=== PATIENT | male | born 1990 | race Caucasian/White ===

== ENCOUNTER → 2019-01-06 | Outpatient (CLI) | payer OTHER ==
[~2019-01-06] MED LIST: BUP100 PO; CIT20 PO; CITA-156 PO; CITA10SO7 PO; DIA5 PO; IBUP800T37 PO; LEVO150T72 PO; LISI-362 PO; LORA-1254 PO; LORA-630 PO; MID PO; PARO-242 PO; PARO10TA PO; PENI250S14 PO; PER PO; PHENA100 PO; RIZA10 PO; TAM4 PO; TRAZ-133 PO; mvi; vit d
== END ==
LOC: US 10:55
PROVIDERS: ATTEND Family Medicine
DX: I34.0 Nonrheumatic mitral (valve) insufficiency (principal); I07.1 Rheumatic tricuspid insufficiency
CPT/HCPCS: 93306

== ENCOUNTER 2019-04-28 18:06 | Emergency (ER) | payer OTHER ==
--- NOTE | 2019-04-28 18:10 | ER Report ---
History and Physical Time Seen By MD: 18:05 HPI/ROS CHIEF COMPLAINT: Numbness, left scalp HISTORY OF PRESENT ILLNESS: 28-year-old male with a long history of anxiety and panic attacks. Patient also has a typical migraines but hasn't had one for years. Patient notes sudden onset approximately 30 minutes prior to arrival of sudden numbness on his left scalp. He describes a decrease of approximate 70% of the sensation on that side. He's feeling somewhat ill and out of sorts. He notes that he's had some trouble walking, but he states he did not fall her. He has not had a staggering gait. He states she's had a severe migraine with strokelike symptoms before. Patient notes no numbness, tingling or weakness in any of his arms or legs. He notes no incoordination. He notes no visual changes or speech changes. Patient denies recent illness. He does describe some sensation of vertigo. Patient denies neck pain or history of arthritis in his neck. REVIEW OF SYSTEMS: Respiratory: No cough, no dyspnea. Cardiovascular: No chest pain, no palpitations. Gastrointestinal: No vomiting, no abdominal pain. Musculoskeletal: No back pain. Allergies: Coded Allergies: cefaclor (Verified Allergy, Mild, RASH, 04/28/19) milk (Unverified Allergy, Mild, Pt gets "sick to the stomach", 04/28/19) cannot drink milk but can eat products containing milk oxycodone HCl (Verified Allergy, Unknown, 04/28/19) Uncoded Allergies: Eggs (Allergy, Mild, Pt. gets "sick to the stomach", 11/11/09) SEASONAL ALLERGIES (Allergy, Mild, 06/01/08) Home Meds Reported Medications Cholecalciferol (Vitamin D3) (VITAMIN D3) 1,000 Unit Tablet, 5000 UNIT PO 3XW, TAB 04/28/19 Omeprazole (OMEPRAZOLE) 20 Mg Capsule.dr, 1 CAP PO QDAY, CAP 04/28/19 Metformin Hcl (METFORMIN HCL) 500 Mg Tablet, 1 TAB PO 2XW, TAB 04/28/19 Hydrochlorothiazide (HYDROCHLOROTHIAZIDE) 25 Mg Tablet, 1 TAB PO QDAY, TAB 04/28/19 Lisinopril (LISINOPRIL) 10 Mg Tablet, 30 MG PO QDAY, TAB 04/28/19 Escitalopram Oxalate (LEXAPRO) 20 Mg Tablet, 20 MG PO QDAY, TAB 04/28/19 Discontinued Reported Medications Paroxetine Hcl (PAXIL) 10 Mg Tablet, 10 MG PO QDAY 08/15/13 Lisinopril (LISINOPRIL) 10 Mg Tablet, 10 MG PO QDAY 08/15/13 Discontinued Scripts Ibuprofen (IBUPROFEN) 800 Mg Tablet, 1 TAB PO Q8H, #30 Prov:REMBERTO COPELAND DO 05/04/15 Diazepam (VALIUM) 5 Mg Tablet, 5 MG PO Q6-8H, #15 TAB TAKE ONE TABLET BY MOUTH TWO TO THREE TIMES A DAY Prov:REMBERTO COPELAND DO 05/04/15 Lorazepam (LORAZEPAM) 0.5 Mg Tablet, 0.5 MG PO Q4-6H, #10 MG TAKE ONE TABLET BY MOUTH EVERY FOUR TO SIX HOURS NEEDED Prov:ADELAIDEHILARIA RICHA DO 08/15/13 Past Medical/Surgical History He does have a history of hypertension and asthma, anxiety, atypical migraine Reviewed Nurses Notes: Yes Old Medical Records Reviewed: Yes Hx Smoking: No Exposure to Second Hand Smoke?: No Hx Substance Use Disorder: No Hx Alcohol Use: No Constitutional Vital Sign - Last 24 Hours 04/28/19 04/28/19 04/28/19 04/28/19 18:14 18:30 19:00 19:05 Temp 97.5 Pulse 69 81 78 77 Resp 20 B/P (MAP) 144/87 Pulse Ox 94 92 94 92 O2 Delivery Room Air 04/28/19 19:20 Pulse 75 Pulse Ox 94 Physical Exam General Appearance: The patient is alert, has no immediate need for airway protection and no current signs of toxicity. Vital signs stable, afebrile, pulse ox normal, alert and oriented 3 HEENT: Pupils equal and round no injection. TMs normal, oropharynx without redness or exudate, mucous membranes are moist Respiratory: Chest is non tender, lungs are clear to auscultation. Cardiac: regular rate and rhythm Gastrointestinal: Abdomen is soft and non tender, no masses, bowel sounds normal. Musculoskeletal: Neck: Neck is supple and non tender. Extremities have full range of motion and are non tender. Skin: No rash or lesions. Neuro: Alert and oriented 3, cranial nerves II through XII intact motor 5/5 all groups, sensory intact to light touch 4, except there is decreased sensation to the left scalp and the entire left hemisphere History and physical exam differential diagnosis was considered for weakness including but not limited to electrolyte abnormality, depression, anxiety, CVA, spinal cord abnormality, and infectious causes. Medical Decision Making EKG/Imaging Imaging Results: CT scan of the head without contrast was obtained. The results of the study are The study was read by the radiologist. I viewed the images myself on the PACS system. ED Course/Re-evaluation ED Course Patient was admitted to an examination room. H&P was done. The differential diagnoses was considered. Patient with acute onset of paresthesias his left side of his scalp. He has no visual changes, no speech changes. No peripheral neurologic symptoms. A head CT was performed which was unremarkable. Patient was reassured that. It's likely paresthesia related to the cervical nerves of the scalp. He is advised ibuprofen 600 mg 3 times daily. He also does have a history of atypical migraines. This could be of that feature. He is advised to follow-up with his primary care if unimproved in 3-5 days for further evaluation or referral to neurology if his symptoms persist. Decision to Disposition Date: Apr 28, 2019 Decision to Disposition Time: 19:28 Depart Departure Latest Vital Signs Vital Signs Date Time Temp Pulse Resp B/P (MAP) Pulse Ox O2 Delivery O2 Flow Rate FiO2 04/28/19 19:20 75 94 04/28/19 18:14 97.5 20 144/87 Room Air Impression: Primary Impression: Paresthesia Condition: Improved Disposition: HOME OR SELF-CARE Referrals: YAIMA GONZÁLES MD (PCP) Patient Instructions: Paresthesia (ED) Additional Instructions: Take ibuprofen 200 mg 2-3 tablets 3 times a day with food for 3-5 days Follow-up with primary care if unimproved in 3-5 days for further evaluation ERIC GOODE DO Apr 28, 2019 18:10
[2019-04-28 18:14] VITALS: BP 144/87
[2019-04-28] MEDS ORDERED: HYDR-2966 PO (18:22)
[2019-04-28] MEDS ORDERED: LISI-362 PO (18:22)
[2019-04-28] MEDS ORDERED: METF-450 PO (18:22)
[2019-04-28] MEDS ORDERED: ESCI20TA38 PO (18:22)
[2019-04-28] MEDS ORDERED: OMEP-126 PO (18:22)
[2019-04-28] MEDS ORDERED: CHOL10005 PO (18:22)
--- NOTE | 2019-04-28 19:26 | RADIOLOGY IMAGING REPORT ---
FACILITY: [facility] [place] PATIENT NAME: Shaun Byrd : 1990 MR: [id number] V: [id number] EXAM DATE: ORDERING PHYSICIAN: ERIC BYRD TECHNOLOGIST: Location: [facility] Patient: Shaun Byrd : 1990 Visit/Account:[id number] Date of Sevice: 04/28/2019 EXAMINATION: CT head without IV contrast HISTORY: Left scalp numbness and tingling. TECHNIQUE: Axial CT images of the head were obtained from the vertex to the skull base without IV c ontrast, with coronal and sagittal 2D reconstructed images. One of the following dose optimization techniques was utilized in the performance of this exam: Autom ated exposure control; adjustment of the mA and/or kV according to the patient's size; or use of an i terative reconstruction technique. Specific details can be referenced in the facility's radiology C T exam operational policy. COMPARISON: 12/08/2012. FINDINGS: The intracranial contents are unremarkable. No CT evidence of intracranial hemorrhage, mass lesion, or acute infarct. No midline shift or extra-axial fluid collections. Reyes-white differentiation is maintained. The calvarium is intact. The visualized paranasal sinuses and mastoid air cells are unopacified. IMPRESSION: Unremarkable noncontrast head CT. Report Dictated By: Isai Villaseñor MD at 04/28/2019 7:14 PM Report E-Signed By: Isai Villaseñor MD at 04/28/2019 7:19 PM [id number]
== END 2019-04-28 19:37 | disposition home or self-care (01) ==
LOC: ER 18:10
DX: R20.0 Anesthesia of skin (principal)
CPT/HCPCS: 70450; 99284